=== PATIENT | female | born 1990 | race Caucasian/White ===

== ENCOUNTER 2017-02-10 18:11 | Inpatient (IN) | payer MEDICAID ==
--- OUTSIDE RECORDS SUMMARY | 2017-02-10 18:17 | XMS REPORT | Continuity of Care Document ---
:1990 Demographics Phone Unavailable Preferred Language Unknown Marital Status Unknown Zoroastrian Affiliation Unknown Race Unknown Ethnic Group Unknown Author Organization [facility] ([facility]) [place] [address] Phone [phone] Care Team Providers Name Role Phone Unavailable Primary Care Provider Unavailable Source Comments This disclosure is being made pursuant to the Care Everywhere program, applicable federal and state laws, and may not contain all informaitonavailable regarding this patient.[facility] ([facility]) Active Allergies and Adverse Reactions Not on File Current Medications Not on file Active Problems Not on file Social History Tobacco Use Types Packs/Day Years Used Date Never Assessed Plan of Care Health Maintenance Due Date Last Done Comments Hepatitis B Vaccine (1 of 3 - Primary Series) 1990 HPV Vaccine (1 of 3 - Female/Unknown 3 Dose Series) 2001 Tdap Vaccine 2001 Cervical Cancer Screening 2008 Lipid Disorder Screening 2008 MMR Vaccine 2008 Td Vaccine 2008 Varicella Vaccine (1 of 2 - Adult - No Evidence of 2008 Immunity) Influenza Vaccine: Seasonal (#1) 07/01/2016 Results from Last 3 Months Not on file
[2017-02-10] MEDS ORDERED: LIDOCAINE HCL 50 ML VIAL PERI PRN (18:43)
[2017-02-10] MEDS ORDERED: DEXTROSE 5%-LACTATED RINGERS 1,000 ML IV PRN (18:43)
[2017-02-10] MEDS ORDERED: RINGERS SOLUTION,LACTATED 1,000 ML IV ONE (18:43)
[2017-02-10] MEDS ORDERED: ONDANSETRON HCL/PF 2 MG/ML VIAL IV PRN ×2 (18:43→18:59)
[2017-02-10] MEDS ORDERED: NALOXONE HCL 1 MG/1 ML SYRG IV PRN (18:59)
[2017-02-10] MEDS ORDERED: BUPIVACAINE HCL/0.9 % NACL/PF 250 ML EP PRN (18:59)
[2017-02-10] MEDS ORDERED: fentaNYL CITRATE/PF 50 MCG/ML AMPUL IT SCH (19:00)
[2017-02-10] MEDS ORDERED: ceFAZolin SODIUM 2 GM in DEXTROSE 5 % IN WATER 100 ML IV ONE ×2 (19:15)
--- NOTE | 2017-02-10 19:28 | OR ---
Anesthesia Procedure Note - Anesthesia Procedure Note Narrative: Vital Signs - Last Taken Temp 36.4 C L 08/29/15 07:44 Pulse Resp BP 118/84 08/29/15 13:51 Pulse Ox 02/10/17 19:28 ANESTHESIA PROCEDURE NOTE Date of Procedure: 02/10/2017 Time of procedure: 1909. Performed by: David Small CRNA Word Processor Technician: None. Preprocedure diagnosis: Active labor. Post procedure diagnosis: Same. Procedure: Insertion of labor epidural. Indications: The patient is a 26 -year-old multigravida female in active labor requesting labor epidural for pain management. Findings: See below. Details of the procedure: The patient was placed in a sitting position. Back was prepped with DuraPrep. Patient was then draped in a sterile fashion. Lidocaine 1% was infiltrated to the skin and subcutaneous tissues at the level of the L3 4 interspace. The epidural space was identified using a 18-gauge Tuohy needle with [id number] technique. 20 mcg fentanyl was given intrathecally using a 27 ga. spinal needle. Epidural catheter was inserted without difficulty. Negative test dose was elicited using 5 mL of 1.5% preservative-free lidocaine plus epinephrine 1 200,000. The epidural catheter was then taped and secured in place. EBL: Minimal. Fluids: N/A. Specimen: N/A. Post procedure condition: The patient tolerated the procedure well. No complications were noted. Thank you for this consultation. Arita CRNA
[2017-02-10] MEDS ORDERED: SENNOSIDES 8.6 MG TABLET PO PRN (20:00)
[2017-02-10] MEDS ORDERED: OXYTOCIN/DEXTROSE 5%-WATER 30 UNITS/500 ML BAG IV ONE (20:00)
[2017-02-10] MEDS ORDERED: BISACODYL 10 MG SUPP.RECT RC PRN (20:00)
[2017-02-10] MEDS ORDERED: oxyCODONE HCL/ACETAMINOPHEN 1 TAB TABLET PO PRN (20:00)
[2017-02-10] MEDS ORDERED: GLYCERIN/WITCH HAZEL LEAF 40 APPL BOX TP PRN (20:00)
[2017-02-10] MEDS ORDERED: BENZOCAINE/MENTHOL 81 SPRAY CAN TP PRN (20:00)
[2017-02-10] MEDS ORDERED: HYDROCORTISONE 30 APPL TUBE TP PRN (20:00)
--- NOTE | 2017-02-10 20:03 | OR ---
Operative Report - Dictated Report Narrative: Spontaneous vaginal delivery of viable male at 1944 on 02/10/2017 with Apgars 9 and 9, weighing 3982 g in GUME position with nuchal cord 1 and meconium stained fluid. Vigorous cry upon delivery. Cord clamping delayed approximately 1 minute Placenta delivered complete, intact, with three vessel cord Estimated blood loss: less than 50 ml Lacerations: Small linear right labia minora abrasion - no repair History for Definition: * The number of deliveries resulting in a live the patient experienced prior to current hospitalization * The previous delivery of live twins or any live multiple gestation is considered one live event. *If primagravida or nulliparous is documented select zero for the number of previous live births. Live Events: 2
[2017-02-10] MEDS: DOCUSATE SODIUM 100 MG CAPSULE PO SCH (22:03)
[2017-02-11] MEDS ORDERED: OXYTOCIN/DEXTROSE 5%-WATER 30 UNITS/500 ML BAG IV ONE (00:01)
[2017-02-11] MEDS ORDERED: ceFAZolin SODIUM 1 GM VIAL IV ONE (00:01)
[2017-02-11] MEDS: IBUPROFEN 800 MG TABLET PO PRN ×2 (01:00→17:04)
[2017-02-11] MEDS: oxyCODONE HCL/ACETAMINOPHEN 1 TAB TABLET PO PRN ×3 (03:34→20:29)
[2017-02-11] MEDS ORDERED: ceFAZolin SODIUM 1 GM in DEXTROSE 5 % IN WATER 100 ML IV SCH ×2 (04:00)
--- NOTE | 2017-02-11 08:40 | PN ---
Subjective - Date and Time Seen Date: 02/11/17 Time: 08:39 Objective - Vitals Vitals: Last Vital Signs Temp 36.7 C 02/11/17 06:47 Pulse 81 02/11/17 06:47 Resp 16 02/11/17 06:47 BP 134/85 02/11/17 06:47 Pulse Ox 96 02/11/17 06:47 Patient denies complaints. Past 1 large clot this morning, bleeding minimum since then. Abdomen - soft, nontender Uterus - firm, at umbilicus - 1 No calf tenderness Impression: day #1 - s/p spontaneous vaginal delivery. Plan: Continue routine care
[2017-02-11] MEDS: DOCUSATE SODIUM 100 MG CAPSULE PO SCH ×2 (12:08→20:27)
[2017-02-12] MEDS: oxyCODONE HCL/ACETAMINOPHEN 1 TAB TABLET PO PRN ×2 (05:15→08:10)
[2017-02-12] MEDS: IBUPROFEN 800 MG TABLET PO PRN (08:11)
[2017-02-12] MEDS: DOCUSATE SODIUM 100 MG CAPSULE PO SCH (08:11)
--- NOTE | 2017-02-12 08:49 | PN ---
Subjective - Date and Time Seen Date: 02/12/17 Time: 08:48 Objective - Vitals Vitals: Last Vital Signs Temp 36.4 C L 02/11/17 23:35 Pulse 95 02/11/17 23:35 Resp 18 02/11/17 23:35 BP 125/81 02/11/17 23:35 Pulse Ox 97 02/11/17 23:35 Patient denies complaints. Lochia wnl Abdomen - soft, nontender Uterus - firm, at umbilicus - 2 No calf tenderness Impression: day #2 - s/p spontaneous vaginal delivery. Post gestational hypertension Plan: Routine discharge instructions. The eclampsia precautions. Follow-up in the office in 1 week for blood pressure check.
[2017-02-12] MEDS ORDERED: BUPIVACAINE HCL/PF 30 ML VIAL EP ONE (09:01)
[2017-02-12] MEDS ORDERED: ONDANSETRON HCL/PF 2 MG/ML VIAL IV PRN (09:01)
[2017-02-12] MEDS ORDERED: BUPIVACAINE HCL/0.9 % NACL/PF 250 ML EP PRN (09:01)
[2017-02-12] MEDS ORDERED: NALOXONE HCL 1 MG/1 ML SYRG IV PRN (09:01)
[2017-02-12 14:02] VITALS: BP 133/100
== END 2017-02-12 13:15 | disposition home or self-care (01) | DRG 774 ==
LOC: EDSTATUS 18:12 → OB 18:14
PROVIDERS: ADMIT Obstetrics & Gynecology; ATTEND Obstetrics & Gynecology
PROC: 10E0XZZ Delivery of Products of Conception, External Approach (ICD-10-PCS; principal; 2017-02-10)
PROC: 4A1HXCZ Monitoring of Products of Conception, Cardiac Rate, External Approach (ICD-10-PCS; 2017-02-10)
PROC: 3E0S3CZ (ICD-10-PCS; 2017-02-10)
DX: O99.824 Streptococcus B carrier state complicating childbirth (principal); O13.5 Gestational [pregnancy-induced] hypertension without significant proteinuria, complicating the puerperium; Q79.6 Ehlers-Danlos syndromes; O69.81X0 Labor and delivery complicated by cord around neck, without compression, not applicable or unspecified; O77.0 Labor and delivery complicated by meconium in amniotic fluid; Z3A.40 40 weeks gestation of pregnancy; Z37.0 Single live birth

== ENCOUNTER 2017-02-27 17:07 | Emergency (ER) | payer MEDICAID ==
--- OUTSIDE RECORDS SUMMARY | 2017-02-27 17:37 | XMS REPORT | Continuity of Care Document ---
:1990 Demographics Phone Unavailable Preferred Language Unknown Marital Status Unknown Scientologist Affiliation Unknown Race Unknown Ethnic Group Unknown Author Organization [facility] ([facility]) [place] [address] Phone [phone] Care Team Providers Name Role Phone Unavailable Primary Care Provider Unavailable Source Comments This disclosure is being made pursuant to the Care Everywhere program, applicable federal and state laws, and may not contain all informaitonavailable regarding this patient.[facility] ([facility]) Active Allergies and Adverse Reactions Not on [...]
[2017-02-27 18:04] LABS: Hematocrit 47.7 % (37.0-47.0); Hemoglobin 14.8 gm/dL (12.5-16.0); Mean Cell Volume 87.7 fl (78-100); Mean Corpuscular Hemoglobin 27.2 pg (27-31); Mean Platelet Volume 10.1 fl (6.0-9.5); Neutrophil # 4.6 K/mm3 (1.3-6.0); Neutrophil % 58.9 % (42-75.0); Platelet Count 455 K/mm3 (150-450); Red Blood Count 5.44 M/mm3 (4.2-5.4); Red Cell Distribution Width 14.2 % (11.5-14.0); White Blood Count 7.8 K/mm3 (4.0-10.5)
[2017-02-27 18:16] LABS: Albumin * 4.4 gm/dl (3.4-5.0); Anion Gap 12.2 mmol/L (6.8-13.8); BUN/Creatinine Ratio 20.5 (9.0-21.6); Bilirubin, Total 1.4 mg/dL (0.0-1.1); Ca. Corrected For Albumin 8.7 mg/dL (8.4-10.2); Calcium * 9.3 mg/dL (7.9-10.9); Carbon Dioxide 30.2 mmol/L (24-32.6); Magnesium 2.1 mg/dL (1.2-2.8); Potassium 4.4 mmol/L (3.4-4.6); Total Protein 8.4 gm/dL (6.2-8.2)
[2017-02-27 18:23] LABS: Urine Bilirubin Negative (NEGATIVE); Urine Blood Negative /ul (NEGATIVE); Urine Ketone Negative (NEGATIVE); Urine Nitrite Negative (NEGATIVE); Urine Protein Negative (NEGATIVE); Urine Specific Gravity >=1.030 SP.GR. (1.005-1.010); Urine Urobilinogen Normal (NORMAL)
[2017-02-27 18:25] VITALS: BP 111/75
--- NOTE | 2017-02-27 18:43 | ERNOTE ---
ER Female HPI Stated Complaint: BLOOD CLOT 2 WEEKS POSTPARDUM Presenting Symptoms: vaginal bleeding Time Seen by Provider: 02/27/17 17:32 Source: patient Allergies/Adverse Reactions: Allergies lactulose Allergy (Verified 02/27/17 17:31) Latex, Natural Rubber Allergy (Verified 02/27/17 17:31) Penicillins Allergy (Verified 02/27/17 17:31) Home Medications: HOME MEDICATIONS Vit#96/Ferrous Fum/FA [ S] 1 tab PO DAILY 12/10/16 [Last Taken 02/10/17] Ibuprofen [Motrin] 200 - 800 mg PO Q6H PRN #100 tab 02/12/17 [Last Taken Unknown ] - History of Present Illness Narrative: Patient gave to a baby approximately 2 weeks ago without any complications. For some unknown reason today she passed a fairly large clot and started to bleed again. He denies any pain or any cramping at this juncture. She did note that her lochia had actually turned a very very faded pink prior to this episode Timing: Present: intermittent Quality: Present: mild Onset Location: Present: vaginal Associated Symptoms: Present: denies symptoms Review of Systems - Review of Systems Constitutional: Present: See HPI EYE: Present: no symptoms reported ENT: Present: no symptoms reported Respiratory: Present: no symptoms reported Cardiology: Present: no symptoms reported Gastrointestinal/Abdominal: Present: no symptoms reported Genitourinary: Present: See HPI Musculoskeletal: Present: no symptoms reported Skin: Present: no symptoms reported Neurological: Present: no symptoms reported Endocrine: Present: no symptoms reported Hematologic/Lymphatic: Present: no symptoms reported Psych: Present: no symptoms reported - Patient's Past Medical History Patient History - Medical: No pertinent hx Patient History - Cardiac/Respiratory: No pertinent hx Patient History - Cancer: No Hx of Cancer Patient History - Surgical Procedures: T & A Patient History - Other: None - Social History Living Situations: home Psych History: No pertinent hx Alcohol Use: none Drug Use: none Physical Exam - Physical Exam General Appearance: Present: wd/wn, alert, no apparent distress Eye Exam: Normal inspection: bilateral, PERRL: bilateral Ears, Nose, Throat: Present: normal ENT inspection, H, normal pharynx Neck: Present: normal inspection, nontender Respiratory: Present: no respiratory distress, normal breath sounds, no accessory muscle use, chest nontender, lungs clear Cardiovascular/Chest: Present: regular rate, rhythm, no murmur, normal peripheral pulses Gastrointestinal/Abdominal: Present: normal bowel sounds, nontender, nondistended, soft, no organomegaly Rectal Exam: Present: deferred Back Exam: Present: normal inspection, normal range of motion Extremity Exam: Present: normal inspection, non-tender, no edema, normal range of motion Neurological Exam: Present: alert, oriented, normal mood/affect Skin Exam: Present: normal color, warm/dry Lymphatic Exam: Present: no adenopathy Pelvic Exam: Present: active bleeding ED Progress - Results and Orders Patient's Lab Results:: I have reviewed the patient's lab results. - Vital Signs Patient's Vital Signs:: I have reviewed the patient's vital signs. Vital Signs: Vital Signs 02/27/17 02/27/17 17:26 18:25 Temperature 36.7 C Pulse Rate 92 82 Respiratory 12 14 Rate Blood Pressure 114/78 111/75 O2 Sat by Pulse 98 96 Oximetry - Progress/Reassessment Chief Complaint: Genitourinary Problem Plan - Plan Plan: Unclear etiology for the new blood clot that the patient passed or even the active bleeding that appears to be going on at this point. I discussed the case with Dr. Carrera and she is to call the office in the morning to see if anything else needs to be done Departure Clinical Impression: bleeding Qualifiers: hemorrhage type: unspecified Qualified Code(s): O72.1 - Other immediate hemorrhage - Departure Disposition: Home self-care Condition: Good Instructions: Care After Vaginal Delivery Referrals: Katrin Feldman FNP [Primary Care Provider] - Ava Carrera MD [Staff Physician] -
[2017-02-27 18:45] LABS: Urine Appearance Clear; Urine Bacteria None Seen; Urine Color Yellow; Urine RBC None Seen /hpf (0-5); Urine WBC None Seen /hpf (0-5)
== END 2017-02-27 18:48 | disposition home or self-care (01) ==
LOC: ER 17:07
DX: O72.1 Other immediate postpartum hemorrhage (principal)

== ENCOUNTER 2020-03-17 12:02 | Observation (INO) ==
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
[2020-03-17 12:50] LABS: Hematocrit 41.7 % (37.0-47.0); Hemoglobin 13.6 gm/dL (12.5-16.0); Mean Cell Volume 88.2 fl (78-100); Mean Corpuscular Hemoglobin 28.8 pg (27-31); Mean Corpuscular Hgb Conc 32.6 g/dl (32-36); Mean Platelet Volume 10.3 fl (8-12.5); Neutrophil # 8.3 K/mm3 (1.3-6.0); Neutrophil % 72.6 % (42-75.0); Platelet Count 368 K/mm3 (150-450); Red Blood Count 4.73 M/mm3 (4.2-5.4); White Blood Count 11.5 K/mm3 (4.0-10.5)
[2020-03-17 13:01] LABS: Albumin * 4.2 gm/dl (3.4-5.0); Anion Gap 16.6 mmol/L (6.8-13.8); BUN/Creatinine Ratio 12.6 (9.0-21.6); Bilirubin, Total 1.1 mg/dL (0.0-1.1); Ca. Corrected For Albumin 8.6 mg/dL (8.4-10.2); Calcium * 9.1 mg/dL (7.9-10.9); Carbon Dioxide 24.6 mmol/L (24-32.6); Potassium 3.2 mmol/L (3.4-4.6); Total Protein 8.5 gm/dL (6.2-8.2)
[2020-03-17] MEDS ORDERED: MORPHINE SULFATE 2 MG/ML DISP.SYRIN IV ONE (13:13)
[2020-03-17] MEDS ORDERED: NORMAL SALINE 1,000 ML IV PRN (13:14)
[2020-03-17] MEDS ORDERED: diphenhydrAMINE HCL 50 MG/ML VIAL IV ONE (13:22)
[2020-03-17] MEDS ORDERED: diphenhydrAMINE HCL 50 MG/ML VIAL ONE (13:23)
[2020-03-17 14:14] LABS: Prothrombin Time (Patient) 10.4 Seconds (9.1-10.7)
[2020-03-17 14:15] LABS: INR 1.05 INR (0.92-1.08); Partial Thrombolplastin Time 29.7 Seconds (24-32)
[2020-03-17] MEDS: ENOXAPARIN SODIUM 100 MG/ML SYRG SC SCH (15:26)
[2020-03-17] MEDS ORDERED: POTASSIUM CHLORIDE 20 MEQ TABLET.SA PO ONE (17:09)
[2020-03-17] MEDS ORDERED: ZOLPIDEM TARTRATE 10 MG TABLET PO PRN (17:11)
[2020-03-17] MEDS ORDERED: ALBUTEROL SULFATE 200 PUFF INHALER IH PRN (17:11)
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
[2020-03-17] MEDS: ACETAMINOPHEN 325 MG TABLET PO PRN (19:00)
[2020-03-18] MEDS: ACETAMINOPHEN 325 MG TABLET PO PRN (01:04)
[2020-03-18] MEDS: ENOXAPARIN SODIUM 100 MG/ML SYRG SC SCH (03:29)
[2020-03-18] MEDS ORDERED: ALBUTEROL SULFATE 2.5 MG/0.5 ML VIAL.NEB IH PRN (07:25)
[2020-03-18 07:44] LABS: Albumin * 3.3 gm/dl (3.4-5.0); Anion Gap 15.2 mmol/L (6.8-13.8); BUN/Creatinine Ratio 12.7 (9.0-21.6); Ca. Corrected For Albumin 8.9 mg/dL (8.4-10.2); Calcium * 8.7 mg/dL (7.9-10.9); Carbon Dioxide 25.3 mmol/L (24-32.6); Potassium 3.5 mmol/L (3.4-4.6); Total Protein 6.9 gm/dL (6.2-8.2)
[2020-03-18] MEDS ORDERED: SERTRALINE HCL 50 MG TABLET PO SCH (09:00)
--- NOTE | 2020-03-18 10:41 | DS ---
(1) Pulmonary embolism Problem: Acute Qualifiers: Pulmonary embolism type: unspecified Chronicity: acute Acute cor pulmonale presence: unspecified Qualified Code(s): I26.99 - Other pulmonary embolism without acute cor pulmonale (2) DVT (deep venous thrombosis) Problem: Acute Qualifiers: DVT location: lower extremity Affected thrombotic vein of extremity: femoral Chronicity: acute Laterality: left Qualified Code(s): I82.412 - Acute embolism and thrombosis of left femoral vein (3) Hypokalemia Problem: Resolved Date of Discharge:: 03/18/20 Hospital Course: 29-year-old female was admitted for confirmed right lower lobe pulmonary embolism, and left lower lobe DVT was evaluated at bedside was found to be afebrile and in no acute distress. Patient's tachycardia has resolved and she denies chest pain or shortness of breath, she is saturating adequately on room air and is ready to go home. Patient was treated with therapeutic levels of Lovenox per protocol for VTE and will be discharged home with a prescription for Eliquis to comply with 12 weeks of anticoagulation. She was instructed to follow-up with her PCP and 3 to 5 days. There are no other concerns concerning this patient. Procedures Performed: none Results and Findings: Lab Pending Results 03/17/20 12:40: WBC 11.5 H, RBC 4.73, Hgb 13.6, Hct 41.7, MCV 88.2, MCH 28.8, MCHC 32.6, RDW 13.0, Plt Count 368, MPV 10.3, Immature Gran % (Auto) 0.40, Immature Gran # (Auto) 0.05 H, Neutrophils % 72.6, Lymphocytes % 14.9 L, Monocytes % 8.5, Eosinophils % 3.4 H, Basophils % 0.2, Nucleated RBC % 0.0, Neutrophils # 8.3 H, Lymphocytes # 1.71, Monocytes # 1.0, Eosinophils # 0.4, Absolute Basophils 0.0 03/17/20 12:40: Sodium 138, Plasma Sodium 138, Potassium 3.2 L, Chloride 100, Carbon Dioxide 24.6, Anion Gap 16.6 H, BUN 11, Creatinine 0.87, Est GFR (Non-Af Amer) 82, BUN/Creatinine Ratio 12.6, Random Glucose 117 H, Calcium 9.1, Calcium Adj for Albumin 8.6, Total Bilirubin 1.1, AST 18, ALT 24, Alkaline Phosphatase 71, Total Protein 8.5 H, Albumin 4.2 03/17/20 12:40: Serum HCG, Qual Negative 03/17/20 12:40: D-Dimer 6.21 H 03/17/20 13:24: PT 10.4, INR (Anticoag Therapy) 1.05, PTT (Nitza) 29.7 03/18/20 07:25: Sodium 141, Plasma Sodium 141, Potassium 3.5, Chloride 104, Carbon Dioxide 25.3, Anion Gap 15.2 H, BUN 9, Creatinine 0.71, Est GFR (Non-Af Amer) 103 D, BUN/Creatinine Ratio 12.7, Random Glucose 100, Calcium 8.7, Calcium Adj for Albumin 8.9, Total Bilirubin 1.0, AST 16, ALT 20, Alkaline Phosphatase 52, Total Protein 6.9, Albumin 3.3 L Discharge Location: Home Disposition: Home self-care Condition: Stable Face to Face Encounter completed per [facility] Guidelines: No Discharge Activity: Activity as tolerated Discharge Diet: General/regular food Referrals: Katrin Feldman FNP [Primary Care Provider] - Prescriptions (Any new or edited meds): Apixaban [Eliquis] 10 mg PO BID 7 Days #14 tab Transmission Status: Pending to [facility] Apixaban [Eliquis] 5 mg PO BID 83 Days #168 tab Transmission Status: Pending to [facility] Complete Home Medications List: Complete Home Medication List: zolpidem 10 mg tablet 10 mg PO HS PRN #14 tab 01/14/20 sertraline 50 mg tablet 75 mg PO DAILY #45 tab 02/08/20 albuterol sulfate 90 mcg/actuation aerosol inhaler 2 inh IH Q6H PRN #8.5 g 02/11/20 Apixaban [Eliquis] 5 mg PO BID 83 Days #168 tab 03/18/20 Apixaban [Eliquis] 10 mg PO BID 7 Days #14 tab 03/18/20
[2020-03-18 11:26] VITALS: BP 126/76
== END 2020-03-18 12:40 | disposition home or self-care (01) ==
LOC: ER 12:02 → MS 12:02
PROVIDERS: ADMIT Family Medicine; ATTEND Family Medicine
DX: E87.6 Hypokalemia; I26.99 Other pulmonary embolism without acute cor pulmonale; I82.412 Acute embolism and thrombosis of left femoral vein; M79.662 Pain in left lower leg; W10.9XXA Fall (on) (from) unspecified stairs and steps, initial encounter
CPT/HCPCS: 36415; 71275; 73502; 80053; 84703; 85025; 85379; 85610; 85730; 93005; 93926; 93971; 96372; 96374; 96375; 99283; 99285; G0378; Q9967